=== PATIENT | female | born 1980 | race Caucasian/White ===

== ENCOUNTER 2018-03-18 12:02 | Outpatient (REF) | payer OTHER, SELFPAY ==
--- NOTE | 2018-03-18 10:00 | PAPFT_PTH ---
PATIENT: Sarita Stern LOC: [facility] U#:[id number] AGE/SX: 37/F ROOM: RE03/18/[address]: JUSTICE Roberto : 1980 BED: DIS: 03/18/2018 SPEC #: [id number] RECD: 03/18/18 12:24 STATUS: STANLEY RENadege #: [id number] YULISA: 03/18/18 10:[address]: Felicia Lewis DEPT: [facility] Cytology RECD BY: Nancy Burgos ENTERED: 03/18/18 12:25 SP TYPE: PAPFT OTHR DR: Sandy Holt Tissues: 1 - CX/ENDOCX FOR PAP SMEARS Procedures: PAP THIN PREP/[facility] Screening HPV DNA PROBE Comments: [id number]
[2018-03-19 14:00] LABS: Chlamydia Result Negative; GC Result Negative; Specimen Description CERVIX
== END 2018-03-18 12:22 ==
LOC: LBN 12:02
PROVIDERS: Visit Provider Nurse Practitioner Family
DX: R30.0 Dysuria (principal); Z11.3 Encounter for screening for infections with a predominantly sexual mode of transmission; Z12.4 Encounter for screening for malignant neoplasm of cervix; Z11.51 Encounter for screening for human papillomavirus (HPV)
CPT/HCPCS: 87491; 87591; 88142; 87086; 87624

== ENCOUNTER 2019-09-05 02:42 | Outpatient (CLI) | payer BC, SELFPAY ==
--- NOTE | 2019-09-05 11:28 | DI.US_ITS ---
EXAM: US THYROID CLINICAL HISTORY: NONTOXIC GOITER, E04.9. TECHNIQUE: Ultrasound thyroid performed using standard protocol. COMPARISON: There are no prior comparison exams. FINDINGS: ISTHMUS: 3 mm RIGHT LOBE: Size: 4.2 x 1.3 x 1.4 cm Echogenicity: Normal. Vascularity: Normal. Nodules: 1.4 x 0.9 x 1.0 cm nodule near the lower pole. Lesion is not ideally visualized. It is mos tly solid and mildly hypoechoic. It appears taller than wide. The margin is smooth. There is a que stion of macro calcifications in the posterior aspect of the nodule. LEFT LOBE: Size: 4.2 x 1.2 x 1.3 cm Echogenicity: Normal. Vascularity: Normal. Nodules: None. OTHER FINDINGS: None. IMPRESSION: 1.4 centimeter solid nodule correspond to a TI-RADS 5, highly suspicious. An FNA is recommended for further evaluation. Normal sonographic appearance of the left lobe.. DATA REPOSITORY:
== END 2019-09-05 03:02 ==
PROVIDERS: Visit Provider Naturopath
DX: E04.1 Nontoxic single thyroid nodule (principal); E04.8 Other specified nontoxic goiter
CPT/HCPCS: 76536

== ENCOUNTER 2019-09-11 02:54 | Outpatient (CLI) | payer BC, SELFPAY ==
[2019-09-11 16:26] LABS: Abs Immature Grans 0.02 k/cumm (0.0-0.09); Absolute Basophil Count 0.02 k/cumm (0.0-0.2); Absolute Eosinophil Count 0.22 k/cumm (0.0-0.7); Absolute Lymphocyte Count 2.51 k/cumm (1.2-3.4); Absolute Monocyte Count 0.62 k/cumm (0.11-0.7); Basophils % 0.2; Eosinophils % 2.7; HCT 39.2 % (36.0-46.0); HGB 13.3 g/dL (12.0-15.5); Immature Grans % 0.2 %; Lymphocytes % 30.6; Mean Corp. HGB Concentration 33.9 g/dL (32.0-36.0); Mean Corpuscular Hemoglobin 30.9 pg (27.0-33.0); Mean Platelet Volume 9.9 fL (8.0-11.0); Monocytes % 7.6; Neutrophils % 58.7; Platelet Count 295 x1000/uL (130-400); RBC 4.31 m/cumm (4.00-5.20); White Blood Cell Count 8.19 k/cumm (4.4-10.8)
[2019-09-11 16:36] LABS: Iron 77 ug/dL (50-170); Total Iron Binding Capacity 321 ug/dL (250-450); Transferrin Sat 24 % (15-50)
[2019-09-11 16:47] LABS: ALT 15 U/L (14-59); AST 14 U/L (15-37); Albumin 4.3 g/dL (3.4-5.0); Alkaline Phosphatase 66 U/L (46-116); Anion Gap 4.2 mmol/L (3-11); BUN 16 mg/dL (7-18); Bilirubin, Total 0.6 mg/dL (0.2-1.0); CO2 28.8 mmol/L (21.0-32.0); CREATININE 0.96 mg/dL (0.55-1.02); Calcium 8.6 mg/dL (8.5-10.1); Chloride 101 mmol/L (98-107); Ferritin 49 ng/mL (8-252); Glucose 85 mg/dL (74-106); Potassium 3.8 mmol/L (3.5-5.1); Sodium 134 mmol/L (136-145); Total Protein 7.2 g/dL (6.4-8.2)
== END 2019-09-11 03:14 ==
PROVIDERS: Visit Provider Naturopath
DX: R53.83 Other fatigue (principal)
CPT/HCPCS: 36415; 80053; 82728; 83540; 83550; 85025

== ENCOUNTER 2019-09-16 11:28 | Outpatient (CLI) | payer BC, SELFPAY ==
[2019-09-17 01:50] LABS: COVID-19 RT-PCR UVMMC Result Negative (Negative)
== END 2019-09-16 11:48 ==
PROVIDERS: Visit Provider Naturopath
DX: Z11.59 Encounter for screening for other viral diseases (principal)
CPT/HCPCS: U0003

== ENCOUNTER 2019-10-28 13:43 | Outpatient (CLI) | payer BC, SELFPAY ==
[2019-10-31 01:18] LABS: SARS-CoV-2 RNA Undetected (Undetected); SARS-CoV-2 Specimen Source Nasopharynx
== END 2019-10-28 14:03 ==
PROVIDERS: Visit Provider Naturopath
DX: Z11.59 Encounter for screening for other viral diseases (principal)
CPT/HCPCS: U0003

== ENCOUNTER 2020-03-31 04:40 | Outpatient (CLI) | payer BC, SELFPAY ==
[2020-03-31 07:43] LABS: Absolute Basophil Count 0.04 10^3/uL (0.0-0.2); Absolute Eosinophil Count 0.39 10^3/uL (0.0-0.7); Absolute Lymphocyte Count 2.07 10^3/uL (1.2-3.4); Absolute Neutrophil Count 3.39 10^3/uL (1.2-6.7); Basophils % 0.6; Eosinophils % 6.1; HCT 42.3 % (36.0-46.0); HGB 13.9 g/dL (11.2-15.7); Lymphocytes % 32.4; MCH 30.3 pg (27.0-33.0); MCHC 32.9 % (32.0-36.0); MCV 92.4 fL (80-95); MPV 9.2 fL (8.0-11.0); Monocytes % 7.8; Neutrophils % 53.1; Nucleated RBC 0 %; Platelet Count 238 10^3/uL (130-400); RBC 4.58 10^6/uL (3.93-5.22); RDW 12.7 % (11.7-14.6); RDW-SD 43.4 fL; WBC 6.39 10^3/uL (4.4-10.8)
[2020-03-31 09:12] LABS: FREE T4 0.93 ng/dL (0.76-1.46)
[2020-03-31 09:39] LABS: Ferritin 26 ng/mL (8-252)
[2020-03-31 16:48] LABS: T3,Free 4.3 pg/mL (2.8-5.3)
[2020-04-01 04:59] LABS: Vitamin D 25 Total 45.7 ng/ml (30-100)
[2020-04-02 18:23] LABS: Thyroid Stimulating Immunoglob <1.0 TSI index (<=1.3)
== END 2020-03-31 05:00 ==
PROVIDERS: Visit Provider Naturopath
DX: E04.1 Nontoxic single thyroid nodule (principal); R53.83 Other fatigue; E55.9 Vitamin D deficiency, unspecified
CPT/HCPCS: 36415; 82306; 82728; 84439; 84443; 84445; 84481; 85025

== ENCOUNTER 2020-04-09 02:55 | Outpatient (CLI) | payer BC, SELFPAY ==
--- NOTE | 2020-04-09 | DI.US_ITS ---
EXAM: US THYROID CLINICAL HISTORY: THYROID NODULE,E04.1. TECHNIQUE: Ultrasound thyroid performed using standard protocol. COMPARISON: US US THYROID from 09/05/2019 FINDINGS: ISTHMUS: 3 mm RIGHT LOBE: Size: 4.4 x 1.5 x 1.3 cm Echogenicity: Normal. Vascularity: Normal. Nodules: There is a stable nodule in the right lobe measuring 1.1 AP by 0.8 transverse by 1.4 cm. Th is compares with 0.9 x 0.7 x 1.4 cm. LEFT LOBE: Size: 4.2 x 0.9 x 1.2 cm Echogenicity: Normal. Vascularity: Normal. Nodules: There is a 0.3 x 0.2 x 0.2 cm hypoechoic solid nodule in the left lobe which is ill-defined. No echogenic foci are seen. This would correspond to a TI-RADS 4 level node. OTHER FINDINGS: None. IMPRESSION: 1. Stable right lobe nodule. The patient reports she is status post biopsy. 2. 0.3 cm solid nodule in the left lobe as described above. DATA REPOSITORY:
== END 2020-04-09 03:15 ==
PROVIDERS: Visit Provider Naturopath
DX: E04.2 Nontoxic multinodular goiter (principal)
CPT/HCPCS: 76536

== ENCOUNTER 2020-04-09 08:12 | Outpatient (CLI) | payer BC, SELFPAY ==
[2020-04-09 13:46] LABS: ALT 15 U/L (14-59); AST 12 U/L (15-37); Albumin 4.2 g/dL (3.4-5.0); Alkaline Phosphatase 57 U/L (46-116); Anion Gap 9.3 mmol/L (3-11); BUN 15 mg/dL (7-18); Bilirubin, Total 0.4 mg/dL (0.2-1.0); C-Reactive Protein < 0.05 mg/dL (0.0-0.3); CO2 27.7 mmol/L (21.0-32.0); CREATININE 0.85 mg/dL (0.55-1.02); Chloride 102 mmol/L (98-107); Creatine Kinase 74 U/L (26-192); Glucose 90 mg/dL (74-106); Sodium 139 mmol/L (136-145); Total Protein 7.6 g/dL (6.4-8.2)
== END 2020-04-09 08:32 ==
PROVIDERS: Visit Provider Naturopath
DX: R53.83 Other fatigue (principal); M79.18 Myalgia, other site; G89.29 Other chronic pain
CPT/HCPCS: 36415; 80053; 82550; 86140

== ENCOUNTER 2020-09-28 04:06 | Outpatient (CLI) | payer BC, SELFPAY ==
[2020-09-28 11:22] LABS: Absolute Basophil Count 0.03 10^3/uL (0.0-0.2); Absolute Eosinophil Count 0.28 10^3/uL (0.0-0.7); Absolute Lymphocyte Count 1.83 10^3/uL (1.2-3.4); Absolute Monocyte Count 0.44 10^3/uL (0.1-0.8); Absolute Neutrophil Count 2.64 10^3/uL (1.2-6.7); Basophils % 0.6; Eosinophils % 5.4; HCT 38.9 % (36.0-46.0); HGB 12.8 g/dL (11.2-15.7); Lymphocytes % 35.1; MCH 30.7 pg (27.0-33.0); MCHC 32.9 % (32.0-36.0); MCV 93.3 fL (80-95); MPV 8.9 fL (8.0-11.0); Monocytes % 8.4; Neutrophils % 50.5; Nucleated RBC 0 %; Platelet Count 239 10^3/uL (130-400); RBC 4.17 10^6/uL (3.93-5.22); RDW 12.4 % (11.7-14.6); RDW-SD 42.8 fL; WBC 5.22 10^3/uL (4.4-10.8)
[2020-09-28 11:23] LABS: ESR 1 mm/hr (0-20)
[2020-09-28 12:31] LABS: ALT 15 U/L (14-59); AST 11 U/L (15-37); Albumin 3.8 g/dL (3.4-5.0); Alkaline Phosphatase 57 U/L (46-116); Anion Gap 9.4 mmol/L (3-11); BUN 11 mg/dL (7-18); Bilirubin, Total 0.3 mg/dL (0.2-1.0); CO2 26.6 mmol/L (21.0-32.0); CREATININE 0.8 mg/dL (0.55-1.02); Calcium 9.1 mg/dL (8.5-10.1); Chloride 105 mmol/L (98-107); Ferritin 33 ng/mL (8-252); Glucose 95 mg/dL (74-106); Potassium 4.4 mmol/L (3.5-5.1); Sodium 141 mmol/L (136-145); Total Protein 6.8 g/dL (6.4-8.2)
[2020-09-29 10:28] LABS: Lyme Ab w Rflx to Lyme Confirm Negative (Negative)
[2020-09-29 20:29] LABS: Vitamin B12 817 pg/mL (193-986)
[2020-09-29 20:32] LABS: Folate > 20.0 ng/mL (8.6-20.0)
[2020-09-29 20:38] LABS: Iron 75 ug/dL (50-170); Total Iron Binding Capacity 316 ug/dL (250-450)
[2020-09-30 03:41] LABS: Vitamin D 25 Total 43.5 ng/mL (30-100)
== END 2020-09-28 04:07 | disposition home or self-care (01) ==
LOC: LBO 04:06
PROVIDERS: Visit Provider Naturopath
DX: M79.605 Pain in left leg (principal); R79.89 Other specified abnormal findings of blood chemistry; R53.83 Other fatigue; E55.9 Vitamin D deficiency, unspecified; R59.0 Localized enlarged lymph nodes; N92.0 Excessive and frequent menstruation with regular cycle
CPT/HCPCS: 36415; 80053; 82306; 85652; 82607; 82728; 82746; 83540; 83550; 85025; 86618

== ENCOUNTER 2021-02-23 12:30 | Outpatient (CLI) | payer BC, SELFPAY ==
--- NOTE | 2021-02-23 13:28 | DI.RAD_ITS ---
Exam(s) XR CHEST 2V PA LATERAL EXAM: XR CHEST 2V PA LATERAL CLINICAL HISTORY: ACUTE COUGH, R05.1 TECHNIQUE: 2D digital imaging was performed of the chest. Two images were obtained. PA and lateral views were obtained. COMPARISON: CR CHEST 2 VIEWS PA,LAT from 03/13/2012 CR CHEST 2 VIEWS PA,LAT from 03/13/2012 FINDINGS: MEDIASTINUM: Normal. HEART: Normal. PULMONARY VASCULATURE: Normal. LUNGS: Clear. PLEURAL SPACE: No pleural effusion or pneumothorax. BONE:Within normal limits for the patient's age. OTHER FINDINGS:Normal. IMPRESSION: No acute pulmonary findings. DATA REPOSITORY: RADIATION DOSE DELIVERED:
== END 2021-02-23 12:50 ==
PROVIDERS: Visit Provider Naturopath
DX: R05.1 Acute cough (principal)
CPT/HCPCS: 71046

== ENCOUNTER 2021-07-22 22:39 | Outpatient (REF) | payer BC, SELFPAY ==
[2021-07-22 20:40] LABS: HCT 39.4 % (36.0-46.0); HGB 12.7 g/dL (11.2-15.7); MCH 29.5 pg (27.0-33.0); MCHC 32.2 % (32.0-36.0); MCV 91 fL (80-95); Platelet Count 230 10^3/uL (130-400); RBC 4.31 10^6/uL (3.93-5.22); RDW 12.6 % (11.7-14.6); RDW-SD 43.1 fL; WBC 5.67 10^3/uL (4.4-10.8)
[2021-07-22 21:02] LABS: ALT 12 U/L (14-59); AST 15 U/L (15-37); Albumin 4.2 g/dL (3.4-5.0); Alkaline Phosphatase 58 U/L (46-116); Anion Gap 9.4 mmol/L (3-11); BUN 17 mg/dL (7-18); Bilirubin, Total 0.5 mg/dL (0.2-1.0); CO2 26.6 mmol/L (21.0-32.0); CREATININE 0.7 mg/dL (0.55-1.02); Calcium 8.4 mg/dL (8.5-10.1); Chloride 104 mmol/L (98-107); Glucose 76 mg/dL (74-106); Potassium 4.2 mmol/L (3.5-5.1); Sodium 140 mmol/L (136-145); TSH (W/Ref FT4) 1.65 uIU/mL (0.36-3.74); Total Protein 7.2 g/dL (6.4-8.2)
[2021-07-25 11:20] LABS: FSH 3.5 mIU/mL (See Note)
[2021-07-25 11:23] LABS: LH 6.7 mIU/mL (See Note)
== END 2021-07-22 22:40 | disposition home or self-care (01) ==
LOC: NCHCN 22:39
PROVIDERS: Visit Provider Family Medicine
DX: R53.83 Other fatigue (principal); N92.6 Irregular menstruation, unspecified
CPT/HCPCS: 80053; 85027; 83001; 83002; 84443

== ENCOUNTER 2021-09-15 02:20 | Outpatient (CLI) | payer BC, SELFPAY ==
[2021-09-15 13:40] LABS: Abs Immature Grans 0.01 10^3/uL (0.0-0.06); Absolute Basophil Count 0.02 10^3/uL (0.0-0.2); Absolute Eosinophil Count 0.19 10^3/uL (0.0-0.7); Absolute Lymphocyte Count 1.94 10^3/uL (1.2-3.4); Absolute Neutrophil Count 2.69 10^3/uL (1.2-6.7); Basophils % 0.4; Eosinophils % 3.6; HCT 38.1 % (36.0-46.0); HGB 13.1 g/dL (11.2-15.7); Immature Grans % 0.2; Lymphocytes % 36.3; MCH 30.7 pg (27.0-33.0); MCHC 34.4 % (32.0-36.0); MCV 89 fL (80-95); MPV 9.6 fL (8.0-11.0); Monocytes % 9.3; Neutrophils % 50.2; Platelet Count 230 10^3/uL (130-400); RBC 4.27 10^6/uL (3.93-5.22); RDW 12.7 % (11.7-14.6); RDW-SD 41.9 fL; WBC 5.35 10^3/uL (4.4-10.8)
[2021-09-15 14:10] LABS: ESR 3 mm/hr (0-20)
[2021-09-15 14:17] LABS: ALT 16 U/L (14-59); AST 14 U/L (15-37); Albumin 4.1 g/dL (3.4-5.0); Alkaline Phosphatase 57 U/L (46-116); Anion Gap 8.4 mmol/L (3-11); BUN 16 mg/dL (7-18); Bilirubin, Total 0.5 mg/dL (0.2-1.0); CO2 25.6 mmol/L (21.0-32.0); CREATININE 0.8 mg/dL (0.55-1.02); Calcium 8.9 mg/dL (8.5-10.1); Chloride 102 mmol/L (98-107); FREE T4 0.85 ng/dL (0.76-1.46); Glucose 91 mg/dL (74-106); Potassium 3.9 mmol/L (3.5-5.1); Sodium 136 mmol/L (136-145); TSH 1.49 uIU/mL (0.36-3.74); Total Protein 7.4 g/dL (6.4-8.2)
[2021-09-15 15:27] LABS: Iron 110 ug/dL (50-170); Total Iron Binding Capacity 344 ug/dL (250-450); Transferrin Sat 32 % (15-50)
[2021-09-15 15:45] LABS: Ferritin 38 ng/mL (8-252); Folate > 20.0 ng/mL (8.6-20.0); Vitamin B12 801 pg/mL (193-986)
[2021-09-15 15:51] LABS: Vitamin D 25 Total 37.1 ng/mL (30-100)
[2021-09-15 22:17] LABS: T3,Free 3.6 pg/mL (2.8-5.3)
[2021-09-16 09:50] LABS: C3 Complement 101 mg/dL (81-157); C4 Complement 20 mg/dL (13-39)
[2021-09-20 12:59] LABS: dsDNA Ab, IgG <12.3 IU/mL (<30.0)
[2021-09-20 13:14] LABS: ANA Interpretation Negative (Negative)
[2021-09-20 13:28] LABS: RNP Ab, IgG 1.3 Units (<20.0)
[2021-09-20 13:31] LABS: Sm (Smith) Ab, IgG 2.1 Units (<20.0)
== END 2021-09-15 02:21 | disposition home or self-care (01) ==
LOC: LBO 02:22
PROVIDERS: Visit Provider Naturopath
DX: M25.59 Pain in other specified joint (principal); E04.1 Nontoxic single thyroid nodule; M79.18 Myalgia, other site; Z13.21 Encounter for screening for nutritional disorder
CPT/HCPCS: 36415; 80053; 82306; 85652; 82607; 82728; 82746; 83540; 83550; 84439; 84443; 84481; 85025; 86038; 86160; 86225; 86235

== ENCOUNTER → 2021-10-05 00:18 | Outpatient (CLI) | payer BC, SELFPAY | PROVIDERS: Visit Provider Naturopath ==

== ENCOUNTER 2021-11-12 15:09 | Outpatient (REF) | payer BC, SELFPAY ==
[2021-11-13 19:38] LABS: Campylobacter PCR Negative (Negative); Salmonella PCR Negative (Negative); Shiga Toxin PCR Negative (Negative); Shigella/Enteroinvasive Ecoli Negative (Negative)
[2021-11-16 20:54] LABS: Calprotectin <50.0 mcg/g
== END 2021-11-12 15:10 | disposition home or self-care (01) ==
LOC: LBN 15:09
PROVIDERS: Visit Provider Naturopath
DX: R19.7 Diarrhea, unspecified (principal); K52.9 Noninfective gastroenteritis and colitis, unspecified
CPT/HCPCS: 87505; 83630; 83993

== ENCOUNTER 2021-12-12 14:28 | Outpatient (CLI) | payer BC, SELFPAY ==
[2021-12-12 14:30] LABS: Bilirubin Negative (Negative); Blood Negative (Negative); Clarity Clear (Clear); Glucose Negative (Negative); Ketones Negative (Negative); Leukocyte Esterase Negative (Negative); Nitrite Negative (Negative); Urobilinogen 0.2 EU/dL (Up TO 0.2); pH 7.5 (5-8)
[2021-12-12 14:30] LABS: Abs Immature Grans 0.01 10^3/uL (0.0-0.06); Absolute Basophil Count 0.02 10^3/uL (0.0-0.2); Absolute Eosinophil Count 0.21 10^3/uL (0.0-0.7); Absolute Lymphocyte Count 0.81 10^3/uL (1.2-3.4); Absolute Monocyte Count 0.46 10^3/uL (0.1-0.8); Absolute Neutrophil Count 3.01 10^3/uL (1.2-6.7); Basophils % 0.4; Eosinophils % 4.6; HCT 38.3 % (36.0-46.0); HGB 12.7 g/dL (11.2-15.7); Immature Grans % 0.2; Lymphocytes % 17.9; MCH 30.1 pg (27.0-33.0); MCHC 33.2 % (32.0-36.0); MCV 91 fL (80-95); MPV 8.8 fL (8.0-11.0); Monocytes % 10.2; Neutrophils % 66.7; Platelet Count 189 10^3/uL (130-400); RBC 4.22 10^6/uL (3.93-5.22); RDW 12.3 % (11.7-14.6); RDW-SD 40.6 fL; WBC 4.52 10^3/uL (4.4-10.8)
[2021-12-12 15:47] LABS: ALT 21 U/L (14-59); AST 24 U/L (15-37); Albumin 3.8 g/dL (3.4-5.0); Alkaline Phosphatase 74 U/L (46-116); Anion Gap 7.5 mmol/L (3-11); BUN 7 mg/dL (7-18); Bilirubin, Total 0.3 mg/dL (0.2-1.0); CO2 29.5 mmol/L (21.0-32.0); CREATININE 0.8 mg/dL (0.55-1.02); Calcium 8.8 mg/dL (8.5-10.1); Chloride 103 mmol/L (98-107); Estimated GFR 94.28 (mL/min/1.73m2); GGT 11 U/L (5-55); Glucose 97 mg/dL (74-106); Potassium 3.7 mmol/L (3.5-5.1); Sodium 140 mmol/L (136-145); Total Protein 7.3 g/dL (6.4-8.2)
== END 2021-12-12 14:29 | disposition home or self-care (01) ==
LOC: LBO 14:44
PROVIDERS: Visit Provider Naturopath
DX: R10.11 Right upper quadrant pain (principal); R39.82 Chronic bladder pain
CPT/HCPCS: 36415; 80053; 81003; 82977; 85025

== ENCOUNTER → 2021-12-23 00:19 | Outpatient (CLI) | payer BC, SELFPAY ==
--- NOTE | 2021-12-23 08:00 | DI.NM_ITS ---
Exam(s) NM BONE SCAN WHOLE BODY GRP EXAM: NM BONE SCAN WHOLE BODY GRP CLINICAL HISTORY: MASS OF SACRUM, M53.88. TECHNIQUE: Injected Dose: 25 mCi Tc-99m MDP Delayed Images: 2-3 hours. COMPARISON: CT CT ABDOMEN PELVIS W from 12/14/2021 FINDINGS: There is a small focus of increased radiopharmaceutical uptake seen in the right side of the sacrum p robably corresponding to the finding on the recent CT scan. No other abnormal uptake seen in the pelvis with the exception of mild increased focal uptake seen in the outer aspect of the greater trochanter of left hip. This is subtle and there are no findings in the greater trochanter on the recent CT scan. Some uptak e seen in the right foot at the great toe level corresponds supra most probable degenerative change t he great toe metatarsophalangeal joint. Also mild increased focal uptake seen in the left knee consistent with degenerative change. There is no abnormal uptake seen in the spinal column and rib cages nor in the shoulder girdles nor w ithin the skull. IMPRESSION: 1. Solitary focus of significant increased uptake which is in the right side of the sacrum and which corresponds to the sclerotic density osseous seen on the recent CT scan at this level. As the next s tep I recommend MRI to determine if there is surrounding bone edema.. DATA REPOSITORY:
== END ==
PROVIDERS: Visit Provider Naturopath
DX: M53.88 Other specified dorsopathies, sacral and sacrococcygeal region (principal)
CPT/HCPCS: 78306

== ENCOUNTER → 2021-12-30 00:16 | Outpatient (CLI) | payer BC, SELFPAY ==
--- NOTE | 2021-12-30 09:34 | DI.MAMMO_ITS ---
Exam(s) MAMMO SCREENING EXAM: MAMMO SCREENING CLINICAL HISTORY: SCREENING FOR BREAST CANCER Z12.39 TECHNIQUE: Bilateral full field digital CC and MLO mammographic images were obtained with 3D tomosyn thesis and utilizing computer aided detection (CAD). COMPARISON: None. FINDINGS: Masses/Architectural Distortion: There is a well-circumscribed ovoid nodule near the 6 o'clock positi on of the right breast posteriorly. There appears to be a central notch suggesting a intraparenchyma l lymph node. Microcalcifications: No suspicious pleomorphic-type are seen. Skin Thickening/Nipple Retraction: None. IMPRESSION: 1. Well-circumscribed ovoid nodule near the 6 o'clock position of the right breast. 2. Additional views are requested for further evaluation ultrasound may be indicated at that time. BI-RADS Category 0 - Assessment Incomplete: Need additional imaging evaluation Breast Density - Category C - Heterogeneously dense Breast density category C or D implies that the patient has dense breast tissue. Dense breast tissue is very common and is not abnormal but dense breast tissue can make it harder to find cancer on a ma mmogram. Also, dense breast tissue may increase their breast cancer risk. This information about the result of the mammogram report was provided to the patient to raise their awareness. Use this report when you speak with the patient about their risks for breast cancer, which includes their family hist ory. At that time, you may recommend for more screening tests (Ultrasound or MRI) as they might be us eful based on their risk. A negative radiographic report should not delay biopsy if a dominant or clinically suspicious mass is present. Up to ten percent of cancers are not identified on mammography. A negative report may reinforce clinical impression. Adenosis and dense breasts may obscure an underlying neoplasm. False positive reports average 6 to 10%. Patient will receive a letter notifying them of these results.
[2021-12-30] MEDS: Omnipaque 350 MG/ML 100 ML BTL IJ (10:47)
--- NOTE | 2021-12-30 10:55 | DI.CT_ITS ---
Exam(s) CT ABDOMEN W EXAM: CT ABDOMEN W CLINICAL HISTORY: LIVER DISEASE, K76.9, RT HEPATIC LOBE LESION TECHNIQUE: Imaging Protocol: Axial computed tomography images with coronal and sagittal reformatted images were created and reviewed CONTRAST MATERIAL: Intravenous: Omnipaque 350 contrast volume:100 mL Oral: Yes COMPARISON: CT CT ABDOMEN PELVIS W from 12/14/2021 FINDINGS: ABDOMEN: Lung Bases: Normal where visualized. Liver: Normal density. There is again seen a 1.9 cm hypodense lesion in the caudal aspect of the righ t lobe of the liver. There is progressive enhancement of the mass over the course of the examination . On the final 16 minutes postcontrast examination the mass is completely opacified and is isodense to the rest of the liver. The finding is most consistent with a hepatic hemangioma. No suspicious h epatic masses are seen. There is a few tiny simple cysts in the liver. No follow-up is recommended. Portal, Superior Mesenteric, and Splenic Veins: Unremarkable. Gallbladder and Biliary Tract: No radiodense calculus or dilation. Pancreas: Normal density, no abnormal calcifications or inflammatory process. Spleen: Normal. Adrenals: No masses seen. Kidneys: Normal size, contour and axis. No radiodense stones or obstructive uropathy. No masses seen. Abdominal Aorta: Abdominal portion non-dilated. Bowel: No obstruction or bowel wall thickening. Peritoneal Cavity: No ascites, collection or mesenteric inflammatory response. No free air. Lymph Nodes: Within normal limits. Bones: No change in appearance of the bones compared to the prior examination. Soft Tissues: Small fat containing umbilical hernia. IMPRESSION: Findings consistent with a hepatic hemangioma in the right lobe of the liver. This corresponds to the finding seen on the CT scan from 12/14/2021. RADIATION DOSE DELIVERED: 1,959.32mGy.cm Total DLP DATA REPOSITORY: All CT scans at this facility are submitted to the National Radiology Data Registry (NRDR) Dose Index Registry (DIR) with the [employer] (A[employer]). RADIATION OPTIMIZATION: All CT scans at this facility use at least one of these dose optimization te chniques: automated exposure control; mA and/or kV adjustment per patient size (includes targeted exa ms where dose is matched to clinical indication); or iterative reconstruction.
== END ==
PROVIDERS: Visit Provider Naturopath
DX: D18.03 Hemangioma of intra-abdominal structures (principal); Z12.31 Encounter for screening mammogram for malignant neoplasm of breast; R92.8 Other abnormal and inconclusive findings on diagnostic imaging of breast
CPT/HCPCS: 77063; 77067; 74160; J3490

== ENCOUNTER → 2022-01-20 00:22 | Outpatient (CLI) | payer BC, SELFPAY ==
--- NOTE | 2022-01-20 | DI.MAMMO_ITS ---
Exam(s) MG MAMMO SCREEN CALL BACK UNI US BREAST RT COMPLETE EXAM: MG MAMMO SCREEN CALL BACK UNI-RIGHT AND COMPLETE RIGHT BREAST ULTRASOUND CLINICAL HISTORY: F/U MAMMO,OVOID NODULE,? LYMPH NODE. TECHNIQUE: Unilateral spot mammographic images obtained with 3D tomosynthesisand utilizing computer aided detection (CAD). . Complete RIGHT breast Ultrasound was also performed, including all 4 quadrants, the retroareolar susan on, and the ipsilateral axilla. COMPARISON: Prior baseline mammogram was reviewed. This additional imaging was performed due to f indings described on the recent baseline screening mammogram of 12/30/2021. FINDINGS: DIAGNOSTIC MAMMOGRAM: Additional mammographic views performed todaydo not dissipate this breast nodule. Therefore proceede d with breast ultrasound COMPLETE RIGHT BREAST ULTRASOUND: Ultrasound performed today reveals a solitary finding which is at the 6-7 o'clock position and most p robably corresponds to the finding on the mammogram.. This has the appearance of a benign wider than taller 1.5 x 0.4 cm finding with neutral through transmission. Appears cystic but without increased through transmission. Possibility that this may represent lymph node. There are no other focal fin dings in all 4 quadrants of the right breast. Scanning of the ipsilateral axilla reveals no significant adenopathy. IMPRESSION: 1. Right breast finding at 6-7 o'clock position as described above. Appropriate follow-up as discussed by myself with the patient today is repeat right breast imaging in 6 months to include repeat mammogram and ultrasound.. The patient was informed of these findings and recommendations prior to leaving the department today. BI-RADS Category 3 - 6 month - Probably Benign Finding: Recommend follow-up mammography in 6 months Breast Density - Category C - Heterogeneously dense Breast density Category C or D implies that the patient has dense breast tissue. Dense breast tissue can make it harder to find cancer on a mammogram. Dense breast tissue is also associated with an incr eased risk of breast cancer. This information about the result of the mammogram report was provided to the patient to raise their awareness. Use this report when you speak with the patient about their risks for breast cancer, which includes their family history. At that time, you may recommend additional screening tests (Ultrasoun d or MRI) as these tests may add significant information. A negative radiographic report should not delay biopsy if a dominant or clinically suspicious mass is present. Up to ten percent of cancers are not identified on mammography. A negative report may reinforce clinical impression. Adenosis and dense breasts may obscure an underlying neoplasm. False positive reports average 6 to 10%. Patient will receive a letter notifying them of these results.
== END ==
PROVIDERS: Visit Provider Naturopath
DX: Z12.31 Encounter for screening mammogram for malignant neoplasm of breast (principal); R92.8 Other abnormal and inconclusive findings on diagnostic imaging of breast
CPT/HCPCS: 76642; 77063; 77067

== ENCOUNTER 2022-06-21 01:01 | Outpatient (CLI) | payer BC, SELFPAY ==
--- NOTE | 2022-06-21 13:35 | DI.MAMMO_ITS ---
Exam(s) MG MAMMO DIAGNOSTIC UNI US BREAST RT LIMITED EXAM: MG MAMMO DIAGNOSTIC UNI CLINICAL HISTORY: F/U 01/20/22, 6 MO F/U, R92.8,RT FINDING, ? LYMPH NODES. COMPARISON: MG MG MAMMO SCREENING from 12/30/2021 US US BREAST RT COMPLETE from 01/20/2022 MG MG MAMMO SCREEN CALL BACK UNI from 01/20/2022 US US BREAST RT LIMITED from 06/21/2022 TECHNIQUE: Craniocaudal and mediolateral oblique Full Field Digital Mammography views of the right b reast with Computer Aided Diagnosis followed by Tomosynthesis and right breast ultrasound. FINDINGS: Mammography/Tomosynthesis: Masses/Architectural Distortion: No change in appearance of lobulated ovoid nodule in the inferior ri ght breast. It shows a fatty hilum consistent with a lymph node. Microcalcifications: No suspicious pleomorphic-type are seen. Skin Thickening/Nipple Retraction: None. Right breast US: Echotexture: Normal appearance of the glandular tissue. Shadowing: No suspicious foci. Cyst: None. Solid lesions: No change in size or appearance of the loosely noted ovoid hypoechoic nodule in the in ferior right breast. Eighth fatty hilum is seen, consistent with a an intramammary lymph node. Ductal dilation: None. IMPRESSION: 1. No evidence of malignancy is noted. 2. Unless there is more urgent need, follow-up screening mammography is recommended, as per [employer] [place] guidelines. BI-RADS Category 3 - Annual - Resume Annual Screening Breast Density - Category C - Heterogeneously dense Breast density category C or D implies that the patient has dense breast tissue. Dense breast tissue is very common and is not abnormal but dense breast tissue can make it harder to find cancer on a ma mmogram. Also, dense breast tissue may increase their breast cancer risk. This information about the result of the mammogram report was provided to the patient to raise their awareness. Use this report when you speak with the patient about their risks for breast cancer, which includes their family hist ory. At that time, you may recommend for more screening tests (Ultrasound or MRI) as they might be us eful based on their risk. A negative radiographic report should not delay biopsy if a dominant or clinically suspicious mass is present. Up to ten percent of cancers are not identified on mammography. A negative report may reinforce clinical impression. Adenosis and dense breasts may obscure an underlying neoplasm. False positive reports average 6 to 10%. Patient will receive a letter notifying them of these results.
== END 2022-06-21 01:21 ==
LOC: DI 01:02
PROVIDERS: Visit Provider Naturopath
DX: R92.8 Other abnormal and inconclusive findings on diagnostic imaging of breast (principal); N60.81 Other benign mammary dysplasias of right breast
CPT/HCPCS: 76642; 77061; 77065; G0279

== ENCOUNTER 2022-11-10 18:28 | Outpatient (REF) | payer BC, SELFPAY ==
[2022-11-10 16:15] LABS: Abs Immature Grans 0.01 10^3/uL (0.0-0.06); Absolute Basophil Count 0.03 10^3/uL (0.0-0.2); Absolute Eosinophil Count 0.22 10^3/uL (0.0-0.7); Absolute Lymphocyte Count 1.38 10^3/uL (1.2-3.4); Absolute Monocyte Count 0.42 10^3/uL (0.1-0.8); Absolute Neutrophil Count 3.17 10^3/uL (1.2-6.7); Basophils % 0.6; Eosinophils % 4.2; HCT 38.8 % (36.0-46.0); HGB 12.8 g/dL (11.2-15.7); Immature Grans % 0.2; Lymphocytes % 26.4; MCH 29.9 pg (27.0-33.0); MCV 91 fL (80-95); MPV 10.1 fL (8.0-11.0); Neutrophils % 60.6; Platelet Count 302 10^3/uL (130-400); RBC 4.28 10^6/uL (3.93-5.22); WBC 5.23 10^3/uL (4.4-10.8)
[2022-11-10 16:22] LABS: ESR 5 mm/hr (0-20)
[2022-11-10 17:28] LABS: BUN 13 mg/dL (7-18); C-Reactive Protein 0.19 mg/dL (0.0-0.3); CREATININE 0.8 mg/dL (0.55-1.02); Calcium 8.9 mg/dL (8.5-10.1); Chloride 103 mmol/L (98-107); FREE T4 1.01 ng/dL (0.76-1.46); Ferritin 26 ng/mL (8-252); Glucose 99 mg/dL (74-106); Potassium 4.2 mmol/L (3.5-5.1); Sodium 140 mmol/L (136-145); TSH 1.57 uIU/mL (0.36-3.74)
[2022-11-10 18:04] LABS: Hemoglobin A1C 5.2 % (<5.7); Vitamin B12 751 pg/mL (193-986)
[2022-11-10 18:31] LABS: Iron 89 ug/dL (50-170); Total Iron Binding Capacity 363 ug/dL (250-450); Transferrin Sat 25 % (15-50)
[2022-11-10 19:33] LABS: Vitamin D 25 Total 41.2 ng/mL (30-100)
[2022-11-10 22:26] LABS: T3,Free 4.1 pg/mL (2.8-5.3)
[2022-11-13 09:44] LABS: Lyme Ab w Rflx to Lyme Confirm Negative (Negative)
[2022-11-13 13:39] LABS: Anaplasma phagocytophilum Negative (Negative); B. miyamotoi PCR Negative (Negative); Babesia divergens/MO-1 Negative (Negative); Babesia duncani Negative (Negative); Babesia microti Negative (Negative); Ehrlichia chaffeensis Negative (Negative); Ehrlichia ewingii/canis Negative (Negative); Ehrlichia muris eauclairensis Negative (Negative)
[2022-11-13 14:20] LABS: ANA Interpretation Negative (Negative)
== END 2022-11-10 18:29 | disposition home or self-care (01) ==
LOC: NCHCN 18:28
PROVIDERS: Visit Provider Nurse Practitioner Family
DX: E04.1 Nontoxic single thyroid nodule (principal); R06.09 Other forms of dyspnea; R61 Generalized hyperhidrosis; M79.18 Myalgia, other site; E66.9 Obesity, unspecified; Z01.84 Encounter for antibody response examination; Z13.1 Encounter for screening for diabetes mellitus; Z11.8 Encounter for screening for other infectious and parasitic diseases; R20.2 Paresthesia of skin; E55.9 Vitamin D deficiency, unspecified; F32.89 Other specified depressive episodes; N92.6 Irregular menstruation, unspecified
CPT/HCPCS: 80048; 82306; 85652; 87798; 82607; 82728; 83036; 83540; 83550; 84439; 84443; 84481; 85025; 86038; 86140; 86618

== ENCOUNTER 2023-05-15 11:52 | Outpatient (REF) | payer BC, SELFPAY ==
--- NOTE | 2023-05-15 14:15 | PAPFT_PTH ---
PATIENT: Sarita Stern [id number] AGE/SX: 42/F ROOM: RE05/15/[address]: Lovely Brar : 1980 BED: DIS: 05/15/2023 SPEC #: [id number] RECD: 05/16/23 12:54 STATUS: STANLEY RENadege #: [id number] YULISA: 05/15/23 14:[address]: Lovely Brar DEPT: [facility] Cytology RECD BY: Nancy Burgos Tissues: 1 - CX/ENDOCX FOR PAP SMEARS Procedures: PAP THIN PREP/[facility]VM Screening HPV DNA PROBE Comments: [id number]
== END 2023-05-15 11:53 | disposition home or self-care (01) ==
LOC: NCHCN 11:52
PROVIDERS: Referring Provider Nurse Practitioner Family; Visit Provider Nurse Practitioner Family
DX: Z00.00 Encounter for general adult medical examination without abnormal findings (principal); Z12.4 Encounter for screening for malignant neoplasm of cervix; Z01.419 Encounter for gynecological examination (general) (routine) without abnormal findings
CPT/HCPCS: 88142; 87624

== ENCOUNTER 2023-05-21 15:29 | Outpatient (REF) | payer BC, SELFPAY ==
[2023-05-21 15:06] LABS: Hemoglobin A1C 5.2 % (<5.7)
[2023-05-21 15:22] LABS: Calculated LDL 120 mg/dL (<100); Cholesterol 201 mg/dL (<200); HDL Cholesterol 64 mg/dL (40-60); TSH 2.13 uIU/Ml (0.36-3.74); Triglyceride 87 mg/dL (<150); Vitamin B12 1294 pg/mL (193-986)
[2023-05-21 15:53] LABS: FREE T4 0.78 ng/dL (0.76-1.46)
[2023-05-22 09:46] LABS: HIV-1/2 Ag & Ab Screen Negative (Negative)
[2023-05-22 09:58] LABS: Hepatitis C Ab w Rflx HCV PCR Negative (Negative)
== END 2023-05-21 15:30 | disposition home or self-care (01) ==
LOC: NCHCN 15:29
PROVIDERS: Visit Provider Nurse Practitioner Family
DX: Z00.00 Encounter for general adult medical examination without abnormal findings (principal); E04.1 Nontoxic single thyroid nodule; F41.8 Other specified anxiety disorders; Z86.39 Personal history of other endocrine, nutritional and metabolic disease; Z13.6 Encounter for screening for cardiovascular disorders; Z13.1 Encounter for screening for diabetes mellitus; Z11.4 Encounter for screening for human immunodeficiency virus [HIV]; Z11.59 Encounter for screening for other viral diseases
CPT/HCPCS: 80061; 86803; 87389; 82607; 83036; 84439; 84443; 84481

== ENCOUNTER 2023-06-19 08:28 | Outpatient (REF) | payer BC, SELFPAY ==
[2023-06-20 10:40] LABS: Campylobacter PCR Negative (Negative); Salmonella PCR Negative (Negative); Shiga Toxin PCR Negative (Negative); Shigella/Enteroinvasive Ecoli Negative (Negative)
== END 2023-06-19 08:29 | disposition home or self-care (01) ==
LOC: NCHCN 08:28
PROVIDERS: Visit Provider Nurse Practitioner Family
DX: K59.00 Constipation, unspecified (principal)
CPT/HCPCS: 87505; 87177

== ENCOUNTER 2024-05-23 00:12 | Outpatient (CLI) | payer SELFPAY ==
--- NOTE | 2024-05-23 | DI.MAMMO_ITS ---
Exam(s) MAMMO SCREENING EXAM: MAMMO SCREENING CLINICAL HISTORY: SCREENING, Z12.31. TECHNIQUE: Bilateral full field digital CC and MLO mammographic images were obtained with 3D tomosyn thesis and utilizing computer aided detection (CAD). COMPARISON: Prior mammograms were reviewed. FINDINGS: No new left breast findings. In the right breast the previously described inferiorly located nodular density appears similar to pr evious, most probably benign intramammary lymph There are no new spiculated masses nor new malignant appearing microcalcification groups. There is no significant architectural distortion nor skin thickening-retraction. IMPRESSION: Stable benign-appearing findings. No radiographic evidence of malignancy. BI-RADS Category 2 - Benign Findings Breast Density - Category B - Scattered areas of fibroglandular density Breast density Category C or D implies that the patient has dense breast tissue. Dense breast tissue can make it harder to find cancer on a mammogram. Dense breast tissue is also associated with an incr eased risk of breast cancer. This information about the result of the mammogram report was provided to the patient to raise their awareness. Use this report when you speak with the patient about their risks for breast cancer, which includes their family history. At that time, you may recommend additional screening tests (Ultrasoun d or MRI) as these tests may add significant information. A negative radiographic report should not delay biopsy if a dominant or clinically suspicious mass is present. Up to ten percent of cancers are not identified on mammography. A negative report may reinforce clinical impression. Adenosis and dense breasts may obscure an underlying neoplasm. False positive reports average 6 to 10%. Patient will receive a letter notifying them of these results.
== END 2024-05-23 00:32 ==
LOC: DI 00:13
PROVIDERS: PCP Nurse Practitioner Family; Visit Provider Nurse Practitioner Family
DX: Z12.31 Encounter for screening mammogram for malignant neoplasm of breast (principal); R92.323 Mammographic fibroglandular density, bilateral breasts; D24.1 Benign neoplasm of right breast
CPT/HCPCS: 77063; 77067

== ENCOUNTER 2024-07-14 11:21 | Outpatient (CLI) | payer BC, SELFPAY ==
[2024-07-14 14:02] LABS: Abs Immature Grans 0.01 10^3/uL (0.0-0.06); HCT 40.2 % (36.0-46.0); HGB 13.1 g/dL (11.2-15.7); MCH 29.2 pg (27.0-33.0); MCHC 32.6 % (32.0-36.0); MCV 90 fL (80-95); MPV 8.8 fL (8.0-11.0); Platelet Count 245 10^3/uL (130-400); RBC 4.48 10^6/uL (3.93-5.22); RDW 13.6 % (11.7-14.6); RDW-SD 44.4 fL; WBC 4.74 10^3/uL (4.4-10.8)
[2024-07-14 14:18] LABS: ALT 69 U/L (14-59); AST 55 U/L (15-37); Albumin 3.7 g/dL (3.4-5.0); Alkaline Phosphatase 75 U/L (46-116); Anion Gap 9.5 mmol/L (3-11); BUN 12 mg/dL (7-18); Bilirubin, Total 0.4 mg/dL (0.2-1.0); CO2 28.5 mmol/L (21.0-32.0); CREATININE 0.8 mg/dL (0.55-1.02); Calcium 8.5 mg/dL (8.5-10.1); Chloride 105 mmol/L (98-107); Estimated GFR 92.54 (mL/min/1.73m2); Glucose 98 mg/dL (74-106); Potassium 3.6 mmol/L (3.5-5.1); Sodium 143 mmol/L (136-145); Total Protein 7.2 g/dL (6.4-8.2)
[2024-07-14 14:21] LABS: Absolute Basophil Count 0.05 10^3/uL (0.0-0.2); Absolute Eosinophil Count 0.19 10^3/uL (0.0-0.7); Absolute Lymphocyte Count 1.66 10^3/uL (1.2-3.4); Absolute Monocyte Count 0.33 10^3/uL (0.1-0.8); Absolute Neutrophil Count 2.51 10^3/uL (1.2-6.7); Atypical Lymphocytes % 5 %; Diff Comment Manual Differential; RBC Morphology Normal
[2024-07-15 10:31] LABS: Hepatitis A Antibody IgM Negative (Negative); Hepatitis B Core Antibody Negative (Negative); Hepatitis B surface Ag Negative (Negative); Hepatitis C Ab w Rflx HCV PCR Negative (Negative)
== END 2024-07-14 11:22 | disposition home or self-care (01) ==
PROVIDERS: PCP Nurse Practitioner Family; Visit Provider Nurse Practitioner Family
DX: R11.2 Nausea with vomiting, unspecified (principal)
CPT/HCPCS: 36415; 80053; 86704; 86709; 86803; 87340; 85025

== ENCOUNTER 2024-09-23 15:17 | Outpatient (REF) | payer BC, SELFPAY ==
[2024-09-23 16:46] LABS: Hemoglobin A1C 5.5 % (<5.7)
[2024-09-23 17:04] LABS: Calculated LDL 88 mg/dL (<100); Cholesterol 162 mg/dL (<200); HDL Cholesterol 58 mg/dL (>or=50); TSH 2.77 uIU/mL (0.36-3.74); Triglyceride 83 mg/dL (<150)
[2024-09-24 08:11] LABS: T3,Free 4.0 pg/mL (2.8-5.3)
== END 2024-09-23 15:18 | disposition home or self-care (01) ==
LOC: NCHCN 15:17
PROVIDERS: PCP Nurse Practitioner Family; Visit Provider Nurse Practitioner Family
DX: E66.9 Obesity, unspecified (principal); E04.1 Nontoxic single thyroid nodule
CPT/HCPCS: 80061; 83036; 84439; 84443; 84481